=== PATIENT | male | born 1995 | race Two or more races ===

== ENCOUNTER 2023-06-14 13:45 | Outpatient (CLI) | payer SELFPAY | END 2023-06-14 23:59 | disposition home or self-care (01) | PROVIDERS: Referring Provider Nurse Practitioner Women's Health; Visit Provider Nurse Practitioner Women's Health | DX: Z00.00 Encounter for general adult medical examination without abnormal findings (principal) | CPT/HCPCS: 36415; 86900; 86901 ==